=== PATIENT | female | born 1975 | race Two or more races ===

== ENCOUNTER 2024-11-27 17:31 | Inpatient (IN) | payer SELFPAY ==
[~2024-11-27] VITALS: Ht 154.9 cm; Wt 107.2 kg
--- NOTE | 2024-11-27 17:41 | ED.PDOC ---
SOB-HPI HPI Comments 48 year old female presents to the ED with chief complaint of SOB. Patient reports that she has been experiencing SOB with associated cough and 5/10 chest pain for the past few days. Patient relays that she has history of asthma and has been using her inhaler and prednisone with no relief noted. Patient denies any N/V, fever, chills, headache, dizziness, or LOC. Chief Complaint: Shortness of Breath Time Seen by MD: 17:38 Reviewed notes: Nurses Notes, Medications, Allergies Information Source: Patient Mode of Arrival: Ambulatory Severity: Moderate Timing: Days Duration: Since onset Context: At Rest PE Risk Factors: None History of: Asthma Prehospital treatment: None Modifying Factors: Nothing Associated Signs and Symptoms: Cough If cough with SOB: Non-Productive Past Medical History PAST MEDICAL HISTORY: Asthma Surgical History: Denies all surgeries OCULAR CARE AIDE History: Denies all OCULAR CARE AIDE Hx Family History Family History: Reviewed,noncontributory to illness Social History Smoker: Non-Smoker Alcohol: Denies ETOH Use Drugs: Denies Drug Use Lives In: Home Constitutional: denies: chills, diaphoresis, fatigue, fever, malaise, sweats, weakness, others EENTM: denies: blurred vision, double vision, ear bleeding, ear discharge, ear drainage, ear pain, ear ringing, eye pain, eye redness, hearing loss, mouth pain, mouth swelling, nasal discharge, nose bleeding, nose congestion, nose pain, photophobia, tearing, throat pain, throat swelling, voice changes, others Respiratory: reports: cough, shortness of breath; denies: hemoptysis, orthopnea, SOB at rest, SOB with excertion, stridor, wheezing, others Cardiovascular: reports: chest pain; denies: dizzy spells, diaphoresis, Dyspnea on exertion, edema, irregular heart beat, left arm pain, lightheadedness, palpitations, PND, syncope, others Gastrointestinal: denies: abdomen distended, abdominal pain, blood streaked bowels, constipated, diarrhea, dysphagia, difficulty swallowing, hematemesis, melena, nausea, poor appetite, poor fluid intake, rectal bleeding, rectal pain, vomiting, others Genitourinary: denies: abnormal vagina bleeding, burning, dyspareunia, dysuria, flank pain, frequency, hematuria, incontinence, pain, , vagina discharge, urgency, others Neurological: denies: dizziness, fainting, headache, left sided numbness, left sided weakness, numbness, paresthesia, pre-existing deficit, right sided numbness, right sided weakness, seizure, speech problems, tingling, tremors, weakness, others Musculoskeletal: denies: back pain, gout, joint pain, joint swelling, muscle pain, muscle stiffness, neck pain, others Integumetry: denies: bruises, change in color, change in hair/nails, dryness, laceration, lesions, lumps, rash, wounds, others Allergic/Immunocompromised: denies: Difficulty Healing, Frequent Infections, Hives, Itching, others Hematologic/Lymphatic: denies: anemia, blood clots, easy bleeding, easy bruising, swollen glands, others Endocrine: denies: excessive hunger, excessive sweating, excessive thirst, excessive urination, flushing, intolerance to cold, intolerance to heat, unexplained weight gain, unexplained weight loss, others Psychiatric: denies: anxiety, bipolar disorder, depression, hopeless, panic disorder, schizophrenia, sleepless, suicidal, others All Other Systems: Reviewed and Negative Physical Exam General Appearance: No Apparent Distress, Normal HEENT: Normal ENT Inspection, Pharynx Normal, TMs Normal Neck: Full Range of Motion, Non-Tender, Normal, Normal Inspection Respiratory: Chest Non-Tender, Lungs Clear, No Accessory Muscle Use, No Respiratory Distress, Other (Tachypneic and Hypoxic) Cardiovascular: No Edema, No JVD, No Murmur, No Gallop, Normal Peripheral Pulses, Tachycardia Breast Exam: Deferred Gastrointestinal: No Organomegaly, Non Tender, No Pulsatile Mass, Normal Bowel Sounds, Soft Genitalia: Deferred Pelvic: Deferred Rectal: Deferred Extremities: No calf tenderness, Normal capillary refill, Normal inspection, Normal range of motion, Non-tender, No pedal edema Musculoskeletal : Apperance: Normal Neurologic: Alert, 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 Was a procedure done?: No Differential Dx Differential Diagnosis: Asthma, Bronchitis, Pneumonia, Respiratory Distress X-Ray, Labs, Meds, VS Vital Signs Date Time Temp Pulse Resp B/P (MAP) Pulse Ox O2 Delivery O2 Flow Rate FiO2 5/21/25 18:25 89 22 95 Nasal Cannula 2.0 11/27/24 18:25 97.0 89 22 148/76 (100) 95 97.0 11/27/24 18:08 26 97 Nasal Cannula* 4 36 11/27/24 17:41 96.3 110 26 166/102 (123) 94 96.3 11/27/24 17:39 26 94 Nasal Cannula* 4 36 Lab Test 11/27/24 19:42 11/27/24 18:27 Range/Units Troponin I High Sensitivity 3 L 3 L </=34 ng/L White Blood Count 21.3 H 4.4-10.8 10^3/uL Red Blood Count 5.10 4.0-5.20 10^6/uL Hemoglobin 15.0 12.2-16.2 g/dL Hematocrit 45.1 36.0-46.0 % Mean Corpuscular Volume 88.5 80.0-100.0 fL Mean Corpuscular Hemoglobin 29.5 28.0-32.0 pg Mean Corpuscular Hemoglobin Concent 33.3 32.0-36.0 g/dL Red Cell Distribution Width 13.5 11.8-14.3 % Platelet Count 370 140-450 10^3/uL Mean Platelet Volume 8.0 6.9-10.8 fL Neutrophils (%) (Auto) 37.0-80.0 % Lymphocytes (%) (Auto) 10.0-50.0 % Monocytes (%) (Auto) 0.0-12.0 % Eosinophils (%) (Auto) 0.0-7.0 % Basophils (%) (Auto) 0.0-2.0 % Neutrophils # (Auto) 1.6-8.6 10 ^3/uL Lymphocytes # (Auto) 0.4-5.4 10 ^3/uL Monocytes # (Auto) 0-1.3 10 ^3/uL Differential Total Cells Counted 100.0 100 Neutrophils % (Manual) 49 37.0-80.0 Band Neutrophils % (Manual) 0 Lymphocytes % (Manual) 16 10.0-50.0 Monocytes % (Manual) 7 0-12 Eosinophils % (Manual) 28 H 0-7 Basophils % (Manual) 0 0.0-2.0 Metamyelocytes % (manual) 0 Myelocytes % (Manual) 0 Promyelocytes % (Manual) 0 Blast Cells % (Manual) 0 Reactive Lymphocytes 0 Platelet Estimate Adequate Sodium Level 137 136-145 mmol/L Potassium Level 4.4 3.5-5.1 mmol/L Chloride Level 103 98-107 mmol/L Carbon Dioxide Level 26 20-31 mmol/L Anion Gap 8 5-15 Blood Urea Nitrogen 11 9-23 mg/dL Creatinine 0.88 0.550-1.02 mg/dL Glomerular Filtration Rate Calc 82 >90 mL/min BUN/Creatinine Ratio 12.5 10.0-20.0 Serum Glucose 112 H 74-106 mg/dL Calcium Level 8.9 8.7-10.4 mg/dL B-Type Natriuretic Peptide 8.42 0-100 pg/mL Current Medications Medications (Trade) Dose Ordered Sig/Akia Route Start Time Stop Time Status Last Admin Albuterol (Ventolin Medneb) 5 mg ONCE ONCE NEB 11/27/24 17:45 11/27/24 17:46 DC 11/27/24 18:08 Azithromycin (Zithromax Tablet) 500 mg ONCE ONCE PO 11/27/24 17:45 11/27/24 17:46 DC 11/27/24 18:50 Ipratropium [place] (Atrovent Medneb) 0.5 mg ONCE ONCE NEB 11/27/24 17:45 11/27/24 17:46 DC 11/27/24 18:08 Methylprednisolone Sodium Succinate (Solu Medrol) 62.5 mg ONCE ONCE IV 11/27/24 17:45 11/27/24 17:46 DC 11/27/24 17:45 Time of 1ST Reevaluation: 18:38 Reevaluation 1ST: Improved Patient Education/Counseling: Diagnosis, Treatment Family Education/Counseling: No Family Present Additional Information Reviewed patient's previous visit(s): None The following tests were ordered, and results were reviewed by me: CXR, CBC, BMP, Troponin, BNP Additional information was gathered from interviewing the following independent historian: None I reviewed and agreed with the following test results read by other provider: CXR I discussed treatments and results with medical personnel and: PATIENT Comprehensive systems review obtained and negative except for what is stated in the HPI. Departure 1 Departure Time of Disposition: 20:53 (Patient with acute on chronic respiratory failure likely secondary to severe status asthmaticus. Patient's white count is elevated but it it is reactionary secondary to steroid usage. Patient without any other signs of infection. We will treat patient with high-dose steroids azithromycin nebs and admit patient) Impression: Primary Impression: Acute and chronic respiratory failure Additional Impressions: Shortness of breath Asthma exacerbation Qualified Codes: J45.41 - Moderate persistent asthma with (acute) exacerbation Disposition: ADMITTED INPATIENT Admit to: Tele Condition: Guarded Critical Care Note Critical Care Time?: Yes Critical care comment: Acute respiratory failure Authorized and Performed by: Kika Zayas MD Total critical care time: Approximately 38 minutes Due to a high probability of clinically significant, life threatening deterioration, the patient required my highest level of preparedness to intervene emergently and I personally spent this critical care time directly and personally managing the patient. This critical care time included obtaining a history; examining the patient; pulse oximetry; ordering and review of studies; arranging urgent treatment with development of a management plan; evaluation of patient's response to treatment; frequent reassessment; and, discussions with other providers. This critical care time was performed to assess and manage the high probability of imminent, life-threatening deterioration that could result in multi-organ failure. It was exclusive of separately billable procedures and treating other patients and teaching time. Please see my other sections and the rest of the note for further information on patient assessment and treatment. Stability Stability form required: No Heart Score Heart Score: Heart Score Response (Comments) Value History N/A 0 EKG N/A 0 Age N/A 0 Risk Factors N/A 0 Troponin N/A 0 Total 0 I personally scribed for KIKA ZAYAS MD ([email or web address]) on 11/27/24 at 17:41. Electronically submitted by Storm Schaefer ([email or web address]). I personally scribed for KIKA ZAYAS MD ([email or web address]) on 11/27/24 at 17:42. Electronically submitted by Storm Schaefer ([email or web address]). KIKA ZAYAS MD November 27, 2024 17:41
[2024-11-27] MEDS: methylPREDNISolone SOD SUCC 125 MG/2 ML VL IV ONE (17:45)
[2024-11-27] MEDS: ALBUTEROL SULF 2.5 MG/0.5ML(0.5%) NEB SOLN NEB ONE (18:08)
[2024-11-27] MEDS: IPRATROPIUM BROM 0.5 MG/2.5ML INH SOL NEB ONE (18:08)
[2024-11-27 18:48] LABS: Hematocrit 45.1 % (36.0-46.0); Mean Corpuscular Hemoglobin 29.5 pg (28.0-32.0); Mean Corpuscular Hgb Conc. 33.3 g/dL (32.0-36.0); Mean Corpuscular Volume 88.5 fL (80.0-100.0); Platelet Count (auto) 370 10^3/uL (140-450); Red Cell Distribution Width 13.5 % (11.8-14.3); White Blood Cell 21.3 10^3/uL (4.4-10.8)
[2024-11-27] MEDS: AZITHROMYCIN 250 MG TAB PO ONE (18:50)
[2024-11-27 18:57] LABS: Band Neutrophils % (manual) 0; Basophils % (manual) 0 (0.0-2.0); Blast Cells 0; Chloride 103 mmol/L (98-107); Metamyelocytes % 0; Myelocytes % 0; Promyelocytes % 0; Reactive Lymphocytes 0; Sodium 137 mmol/L (136-145)
[2024-11-27 18:58] LABS: Anion Gap 8 (5-15); Carbon Dioxide 26 mmol/L (20-31)
[2024-11-27 18:59] LABS: Calcium 8.9 mg/dL (8.7-10.4)
[2024-11-27 19:08] LABS: Glucose 112 mg/dL (74-106); Potassium 4.4 mmol/L (3.5-5.1)
[2024-11-27 19:22] LABS: BUN/Creatinine Ratio 12.5 (10.0-20.0); Blood Urea Nitrogen 11 mg/dL (9-23)
--- NOTE | 2024-11-27 19:31 | DVH ---
INDICATION: sob TECHNIQUE: Frontal view of the chest. COMPARISON: None FINDINGS: Findings:. The heart and mediastinal contours are grossly unremarkable. There is no evidence of pleu ral disease. The lungs are clear. The bony structures of the chest are intact without fracture. IMPRESSION: 1. No evidence of acute disease.
[2024-11-27 20:39] LABS: Eosinophils % (manual) 28 (0-7); Lymphocytes % (manual) 16 (10.0-50.0); Monocytes % (manual) 7 (0-12); Platelet Estimate Adequate
--- NOTE | 2024-11-27 21:04 | DVHHP2 ---
Admitting Diagnosis: Shortness of breaths History of Present Illness 48 year old female presents to the ED with chief complaint of SOB. Patient reports that she has been experiencing SOB with associated cough and 5/10 chest pain for the past few days. Patient relays that she has history of asthma and has been using her inhaler and prednisone with no relief noted. Patient denies any N/V, fever, chills, headache, dizziness, or LOC. PAST MEDICAL HISTORY: Asthma Surgical History: Denies all surgeries ERGONOMIC SPECIALIST History: Denies all ERGONOMIC SPECIALIST Hx Family History Family History: Reviewed,noncontributory to illness Social History Smoker: Non-Smoker Alcohol: Denies ETOH Use Drugs: Denies Drug Use Lives In: Home Vital Signs Vital Signs Date Time Temp Pulse Resp B/P (MAP) Pulse Ox O2 Delivery O2 Flow Rate FiO2 11/27/24 18:25 89 22 95 Nasal Cannula 2.0 11/27/24 18: 97.0 148/76 (100) 97.0 11/27/24 18:08 36 Physical Exam Generally-48 years old woman, morbidly obese, sitting on chair. Moderate distress HEENT-atraumatic, normocephalic Heart-regular rate and rhythm Lungs diffuse wheezing throughout the lung Abdomen soft nontender nondistended Musculoskeletal-no edema cyanosis Neuro-AO x3, no focal deficits Results Labs Test 11/27/24 19:42 11/27/24 18:27 Range/Units Troponin I High Sensitivity 3 L </=34 ng/L White Blood Count 21.3 H 4.4-10.8 10^3/uL Red Blood Count 5.10 4.0-5.20 10^6/uL Hemoglobin 15.0 12.2-16.2 g/dL Hematocrit 45.1 36.0-46.0 % Mean Corpuscular Volume 88.5 80.0-100.0 fL Mean Corpuscular Hemoglobin 29.5 28.0-32.0 pg Mean Corpuscular Hemoglobin Concent 33.3 32.0-36.0 g/dL Red Cell Distribution Width 13.5 11.8-14.3 % Platelet Count 370 140-450 10^3/uL Mean Platelet Volume 8.0 6.9-10.8 fL Neutrophils (%) (Auto) 37.0-80.0 % Lymphocytes (%) (Auto) 10.0-50.0 % Monocytes (%) (Auto) 0.0-12.0 % Eosinophils (%) (Auto) 0.0-7.0 % Basophils (%) (Auto) 0.0-2.0 % Neutrophils # (Auto) 1.6-8.6 10 ^3/uL Lymphocytes # (Auto) 0.4-5.4 10 ^3/uL Monocytes # (Auto) 0-1.3 10 ^3/uL Differential Total Cells Counted 100.0 100 Neutrophils % (Manual) 49 37.0-80.0 Band Neutrophils % (Manual) 0 Lymphocytes % (Manual) 16 10.0-50.0 Monocytes % (Manual) 7 0-12 Eosinophils % (Manual) 28 H 0-7 Basophils % (Manual) 0 0.0-2.0 Metamyelocytes % (manual) 0 Myelocytes % (Manual) 0 Promyelocytes % (Manual) 0 Blast Cells % (Manual) 0 Reactive Lymphocytes 0 Platelet Estimate Adequate Sodium Level 137 136-145 mmol/L Potassium Level 4.4 3.5-5.1 mmol/L Chloride Level 103 98-107 mmol/L Carbon Dioxide Level 26 20-31 mmol/L Anion Gap 8 5-15 Blood Urea Nitrogen 11 9-23 mg/dL Creatinine 0.88 0.550-1.02 mg/dL Glomerular Filtration Rate Calc 82 >90 mL/min BUN/Creatinine Ratio 12.5 10.0-20.0 Serum Glucose 112 H 74-106 mg/dL Calcium Level 8.9 8.7-10.4 mg/dL B-Type Natriuretic Peptide 8.42 0-100 pg/mL Primary Diagnosis Acute respiratory failure requiring oxygen Acute asthma exacerbation Plan Check ABG Diffuse wheezing throughout the lung Solu-Medrol loaded in ED. Solu-Medrol 60 mg q.6 hours Albuterol and ipratropium q.6 hours standing . Q.4 hours. As needed Ceftriaxone, azithromycin for possible superimposed pneumonia Check sputum culture Check procalcitonin and CRP Oxygen saturation goal greater than 92% Full code Regular diet Lovenox for DVT prophylaxis PPI for GI prophylaxis while on steroids Plan discussed with: Patient Problems List: (1) Shortness of breath Status: Acute (2) Acute and chronic respiratory failure Status: Acute (3) Asthma exacerbation Status: Acute Date of Service: November 27, 2024 Billing Provider: [place] KUMAR MD Common Visit Codes: [id number] INP/OBS CARE (HIGH) [place] KUMAR MD November 27, 2024 21:04
[2024-11-27] MEDS ORDERED: ACETAMINOPHEN 325 MG TAB PO PRN (21:15)
[2024-11-27] MEDS ORDERED: ALBUTEROL SULF 2.5 MG/0.5ML(0.5%) NEB SOLN NEB SCH (21:15)
[2024-11-27] MEDS ORDERED: IPRATROPIUM BROM 0.5 MG/2.5ML INH SOL NEB SCH (21:15)
[2024-11-27] MEDS ORDERED: ONDANSETRON HCL 4 MG/2 ML VIAL IV PRN (21:15)
[2024-11-27] MEDS ORDERED: DOCUSATE SOD 100 MG CAP PO PRN (21:15)
[2024-11-27 21:51] LABS: Base Excess -0.2 mmol/L (-2.0-3.0)
[2024-11-27 23:13] VITALS: BP 148/76; PULSE 89; RESP 22; TEMP 97; O2SAT 95
[2024-11-27] MEDS: SODIUM CHLOR 0.9% PF (SALINE LOCK) 10ML VIAL/SYR IV SCH (23:45)
[2024-11-27] MEDS: methylPREDNISolone SOD SUCC 125 MG/2 ML VL IV SCH (23:49)
[2024-11-27] MEDS: cefTRIAXone 1GM/50ML D5W 50 ML IV SCH (23:49)
[2024-11-27 23:59] VITALS: PULSE 105; RESP 20; O2SAT 95
[2024-11-28] VITALS (20 sets, daily range): BP systolic 100–138; BP diastolic 63–90; PULSE 90–122; RESP 16–26; TEMP 97–98.5; O2SAT 92–99
[2024-11-28] MEDS: AZITHROMYCIN 500MG/ 250ML 250 ML IV SCH (00:12)
[2024-11-28] MEDS: HYDROcodone-ACET 5/325MG TAB PO PRN (00:19)
[2024-11-28] MEDS: ALBUTEROL SULF 2.5 MG/0.5ML(0.5%) NEB SOLN NEB SCH ×2 (00:57→06:06)
[2024-11-28] MEDS: IPRATROPIUM BROM 0.5 MG/2.5ML INH SOL NEB SCH ×2 (00:57→06:06)
[2024-11-28] MEDS: ENOXAPARIN SOD 40 MG/0.4 ML SYRINGE SC SCH (09:40)
[2024-11-28] MEDS: MAGNESIUM SULFATE 1GM/100ML 100 ML IV SCH (13:18)
[2024-11-28] MEDS: ALBUTEROL SULF 2.5 MG/0.5ML(0.5%) NEB SOLN NEB PRN (16:10)
[2024-11-28] MEDS: IPRATROPIUM BROM 0.5 MG/2.5ML INH SOL NEB PRN (16:10)
--- NOTE | 2024-11-28 17:38 | DVHPN2 ---
Subjective SOB and wheezing Still wheezing On 5 liter O2 She had treatment as an outpatient and received steroids but she did not get better Changes from previous H/P or p: Changes Objective Vitals Vital Signs Date Time Temp Pulse Resp B/P (MAP) Pulse Ox O2 Delivery O2 Flow Rate FiO2 11/28/24 17:00 98.0 115 20 101/64 (76) 94 98.0 11/28/24 16:10 Nasal Cannula* 4 36 Intake/Output Intake and Output 11/28/24 07:00 Intake Total 750 ml Balance 750 ml Intake Oral 500 ml IV Total 250 ml # Voids 1 General Appearance: Alert, Oriented X3, moderate distress Lungs: Other (Severe diffuse wheezing) Cardiovascular: Regular rate, Normal S1, Normal S2, No murmurs Abdomen: Normal bowel sounds, Soft, No tenderness Extremities: No edema Medications Current Medications Medications Dose Ordered Sig/Kaia Route Start Time Stop Time Status Last Admin Dose Admin Methylprednisolone Sodium Succinate 62.5 mg Q6H IV 11/27/24 21:15 11/28/24 14:40 62.5 MG Ceftriaxone Sodium 50 ml @ 100 mls/hr DAILY IV 11/27/24 21:15 11/28/24 09:39 100 MLS/HR Azithromycin 250 ml @ 125 mls/hr DAILY IV 11/27/24 22:15 11/28/24 10:46 125 MLS/HR Sodium Chloride 10 ml Q8HR IV 11/27/24 22:00 11/28/24 13:18 10 ML Docusate Sodium 100 mg BIDPRN PRN PO 11/27/24 21:15 Acetaminophen 650 mg Q6HP PRN PO 11/27/24 21:15 Acetaminophen/ Hydrocodone Bitart 1 tab Q4HP PRN PO 11/27/24 21:15 11/28/24 10:51 1 TAB Ondansetron HCl 4 mg Q4HP PRN IV 11/27/24 21:15 Enoxaparin Sodium 40 mg DAILY SC 11/28/24 10:00 11/28/24 09:40 40 MG Albuterol 2.5 mg Q4HR NEB 11/28/24 06:00 11/28/24 14:16 2.5 MG Ipratropium [place] 0.5 mg Q4HR NEB 11/28/24 06:00 11/28/24 14:16 0.5 MG Albuterol 2.5 mg Q2HPRN PRN NEB 11/28/24 12:30 11/28/24 16:10 2.5 MG Ipratropium [place] 0.5 mg Q2HPRN PRN NEB 11/28/24 12:30 11/28/24 16:10 0.5 MG Laboratory Results Laboratory Tests 11/27/24 18:27 Chemistry Test 11/27/24 18:27 Calcium Level 8.9 mg/dL (8.7-10.4) Cardiac Markers Test 11/27/24 18:27 B-Type Natriuretic Peptide 8.42 pg/mL (0-100) Blood Gas Results Test 11/27/24 21:42 Arterial Blood pH 7.436 (7.350-7.450) FiO2 % 36.0 Assessment/Plan Assessment/Plan Acute hypoxic respiratory failure Asthma exacerbation Leukocytosis due to steroids Plan IV antibiotics Rocephin and Zithromax IV steroids Oxygen Med neb treatments as needed Pulmonary consultation Full code Advance directives discussed for 20 minutes Monitor closely Telemetry Give magnesium 2 g IV Plan discussed with: Patient My Orders Orders - JOSIANE TRACY MD Procedure Category Date Status Time Complete Blood Count LAB 11/29/24 Verified 04:00 Comprehensive LAB 11/29/24 Verified Metabolic Panel 04:00 Magnesium LAB 11/29/24 Verified 04:00 *Consult CONS 11/28/24 Transmitted / 12:19 Albuterol Medneb PHA 11/28/24 In Process (Ventolin Medneb) 12:30 Ipratropium Medneb PHA 11/28/24 In Process (Atrovent Medneb) 12:30 Date of Service: November 28, 2024 Billing Provider: JOSIANE TRACY MD Common Visit Codes: [id number] INP/OBS CARE(HIGH) Secondary Visit Codes: [id number] CARE PLAN 30 MINUTES JOSIANE TRACY MD November 28, 2024 17:38
--- NOTE | 2024-11-28 21:29 | DVHINCON2 ---
Date of service: November 28, [address] Foster Reason for Consultation Acute respiratory failure History of Present Illness History Source: Patient Exam Limitations: No limitations HPI Patient is a 48-year old lady with a history of asthma who presented with shortness of breath, cough and expiratory wheezes. Was seen in the emergency room where she was admitted for symptoms consistent with acute asthma attack and was started on IV steroids. Pulmonology was consulted to assist in management. Past Medical History Cardiac: No pertinent Hx Pulmonary: Asthma Central Nervous System: No pertinent Hx GI: No pertinent Hx Hemotology/Oncology: No pertinent Hx Hepatobiliary: No pertinent Hx Psychiatric: No pertinent Hx Musculoskeletal: No pertinent Hx Rheumotologic: No pertinent Hx Infectious Disease: No peritnent Hx ENT: No pertinent Hx Renal/: No pertinent Hx Endocrine: No pertinent Hx Dermatology: No pertinent Hx Past Surgical History: No pertinent Hx Family History: Cancer, DM Patient Family History: Diabetes mellitus G8 MOTHER FH: pancreatic cancer G8 MOTHER Gestational diabetes mellitus G8 SISTER G8 SISTER Smoker: No Hx (Negative) Alocohol: None Drugs: None Lives with: With family Domestic Violence: Neg Review of Systems Constitutional: No symptom reported Ears, Nose, & Throat: No symptom reported Eyes: No symptom reported Pulmonary/Respiratory: Dyspnea, Cough Cardiovascular: No symptom reported Gastrointestinal: No symptom reported Genitourinary: No symptom reported Musculoskeletal: No symptom reported Skin: No symptom reported Psychiatric: No symptom reported Endocrine: No symptom reported Hemotologic/Lymphatic: No symptom reported H&P Exam Vital Signs Vital Signs Date Time Temp Pulse Resp B/P (MAP) Pulse Ox O2 Delivery O2 Flow Rate FiO2 11/28/24 19:04 111 20 99 11/28/24 18:58 Nasal Cannula* 4 36 11/28/24 17:00 98.0 101/64 (76) 98.0 General Appeara: Well developed, Well nourished, Normal Appearance Head Exam: Normal inspection Neck Exam: Normal inspection, Non-tender, Normal alignment Eye Exam: bilateral eye Normal inspection, bilateral eye PERRL, bilateral eye EOMI Ear Exam: bilateral ear Auricle normal, bilateral ear Canal normal, bilateral ear TM normal Nasal Exam: Normal inspection Mouth: Normal Inspection Pulmonary/Respiratory: Decreased breath sounds Peripheral Pulses: 4+ Radial (R), 4+ Radial (L), 4+ Brachial (R), 4+ Brachial (L) Abdominal Exam: Normal bowel sounds Labs/Xrays Labs Test 11/27/24 21:42 11/27/24 19:42 11/27/24 18:27 Range/Units Blood Gas Specimen Type Arterial Blood Gas Sample Site Right brachial Blood Gas Patient Temperature 37.0 Arterial Blood Date Drawn [id number] Arterial Blood pH 7.436 7.350-7.450 Arterial Blood Partial Pressure CO2 35.7 32.0-45.0 mmHg Arterial Blood Partial Pressure O2 65.7 L 83.0-108.0 mmHg Arterial Blood HCO3 23.5 21.0-28.0 mmol/L Arterial Blood Oxygen Saturation 93.0 L 94.0-98.0 % Arterial Blood Base Excess -0.2 -2.0-3.0 mmol/L Arterial Blood Oxyhemoglobin 91.6 L 94.0-98.0 % Arterial Blood Carboxyhemoglobin 1.0 0.5-1.5 % Arterial Blood Methemoglobin 0.5 0.0-1.5 % Kye Test N/a Blood Gas Total Hemoglobin 15.50 12.0-16.0 g/dL Blood Gas Liter Flow 4.00 Blood Gas Modality Nasal cannula FiO2 % 36.0 Troponin I High Sensitivity 3 L </=34 ng/L White Blood Count 21.3 H 4.4-10.8 10^3/uL Red Blood Count 5.10 4.0-5.20 10^6/uL Hemoglobin 15.0 12.2-16.2 g/dL Hematocrit 45.1 36.0-46.0 % Mean Corpuscular Volume 88.5 80.0-100.0 fL Mean Corpuscular Hemoglobin 29.5 28.0-32.0 pg Mean Corpuscular Hemoglobin Concent 33.3 32.0-36.0 g/dL Red Cell Distribution Width 13.5 11.8-14.3 % Platelet Count 370 140-450 10^3/uL Mean Platelet Volume 8.0 6.9-10.8 fL Neutrophils (%) (Auto) 37.0-80.0 % Lymphocytes (%) (Auto) 10.0-50.0 % Monocytes (%) (Auto) 0.0-12.0 % Eosinophils (%) (Auto) 0.0-7.0 % Basophils (%) (Auto) 0.0-2.0 % Neutrophils # (Auto) 1.6-8.6 10 ^3/uL Lymphocytes # (Auto) 0.4-5.4 10 ^3/uL Monocytes # (Auto) 0-1.3 10 ^3/uL Differential Total Cells Counted 100.0 100 Neutrophils % (Manual) 49 37.0-80.0 Band Neutrophils % (Manual) 0 Lymphocytes % (Manual) 16 10.0-50.0 Monocytes % (Manual) 7 0-12 Eosinophils % (Manual) 28 H 0-7 Basophils % (Manual) 0 0.0-2.0 Metamyelocytes % (manual) 0 Myelocytes % (Manual) 0 Promyelocytes % (Manual) 0 Blast Cells % (Manual) 0 Reactive Lymphocytes 0 Platelet Estimate Adequate Sodium Level 137 136-145 mmol/L Potassium Level 4.4 3.5-5.1 mmol/L Chloride Level 103 98-107 mmol/L Carbon Dioxide Level 26 20-31 mmol/L Anion Gap 8 5-15 Blood Urea Nitrogen 11 9-23 mg/dL Creatinine 0.88 0.550-1.02 mg/dL Glomerular Filtration Rate Calc 82 >90 mL/min BUN/Creatinine Ratio 12.5 10.0-20.0 Serum Glucose 112 H 74-106 mg/dL Calcium Level 8.9 8.7-10.4 mg/dL C-Reactive Protein High Sensitivity 0.76 <1.0 mg/dL B-Type Natriuretic Peptide 8.42 0-100 pg/mL Assessment/Plan Plan Impression Acute hypoxemic respiratory failure Acute asthma attack Wheezing Dyspnea Patient seen and examined Events Low oxygen requirements On 4 liters nasal cannula Vital signs stable Labs and imaging reviewed Management Supplemental oxygen Titrate to maintain sats 90% or above Incentive spirometry Antibiotics Bronchodilators Steroids Monitor renal function Monitor electrolytes Supplement as needed Obtain CT of the chest without contrast to better characterize lung parenchyma DVT prophylaxis Plan discussed with: Patient NUBIA COTO MD November 28, 2024 21:29
[2024-11-29] VITALS (16 sets, daily range): BP systolic 106–131; BP diastolic 66–89; PULSE 88–118; RESP 17–21; TEMP 96–98.4; O2SAT 94–98
[2024-11-29 06:43] LABS: Albumin 4.2 g/dL (3.2-4.8); Alkaline Phosphatase 63 U/L (46-116); Anion Gap 7 (5-15); BUN/Creatinine Ratio 18.1 (10.0-20.0); Blood Urea Nitrogen 13 mg/dL (9-23); Carbon Dioxide 25 mmol/L (20-31); Chloride 105 mmol/L (98-107); Magnesium 2.5 mg/dL (1.6-2.6); Potassium 4.6 mmol/L (3.5-5.1); Sodium 137 mmol/L (136-145)
[2024-11-29 06:44] LABS: Bilirubin, Total 0.3 mg/dL (0.2-1.0)
[2024-11-29 06:57] LABS: Alanine Aminotransferase 41 U/L (7-40); Aspartate Aminotransferase 9 U/L (13-40); Calcium 8.6 mg/dL (8.7-10.4); Glucose 167 mg/dL (74-106)
[2024-11-29 07:06] LABS: Hematocrit 40.5 % (36.0-46.0); Hemoglobin 13.4 g/dL (12.2-16.2); Mean Corpuscular Hemoglobin 29.5 pg (28.0-32.0); Mean Corpuscular Volume 89.3 fL (80.0-100.0); Platelet Count (auto) 357 10^3/uL (140-450); Red Blood Cells 4.53 10^6/uL (4.0-5.20); Red Cell Distribution Width 13.8 % (11.8-14.3); White Blood Cell 26.3 10^3/uL (4.4-10.8)
[2024-11-29 07:48] LABS: Band Neutrophils % (manual) 0; Basophils % (manual) 0 (0.0-2.0); Blast Cells 0; Eosinophils % (manual) 0 (0-7); Metamyelocytes % 0; Myelocytes % 0; Promyelocytes % 0; Reactive Lymphocytes 0
--- NOTE | 2024-11-29 09:54 | DVH ---
Procedure: CT CHEST WITHOUT CONTRAST Reason for study/Clinical History: dyspnea Comparison Study: None TECHNIQUE: Multidetector CT of the chest was performed from the lung apices to the upper abdomen with out the use of intravenous contract. Axial, coronal and sagittal multiplanar reformats were performed . Radiation Dose Information: CT Dose: CTDI volume is 25.77 mGy. Dose-length product is 918.45 mGy*cm The dose indicators for CT are the volume Computed Tomography (CT) Dose Index (CTDIvol) and the Dose Length Product (DLP), and are measured in units of mGy and mGy-cm, respectively. These indicators are not patient dose, but values generated from the CT scanner acquisition factors. The report includes radiation exposure data for exposures received during this examination. FINDINGS: Lower neck: Unremarkable. Lungs: Right upper lobe ground-glass airspace opacity measures 3.0 cm. Heart/Vascular Structures: Normal heart size. No pericardial effusion. Lymph Nodes: No adenopathy Pleura: No pleural effusion or significant pneumothorax. Musculoskeletal: No acute osseous abnormality. Soft tissues: Normal. Upper abdomen: Cholelithiasis. IMPRESSION: Right upper lobe ground-glass airspace opacity measures 3.0 cm. This is likely infectious or inflamma tory. Recommend repeat CT after treatment to ensure complete resolution.
[2024-11-29 11:53] LABS: Lymphocytes % (manual) 7 (10.0-50.0); Monocytes % (manual) 4 (0-12); Platelet Estimate Adequate
--- NOTE | 2024-11-29 11:54 | DVHPN2 ---
Subjective Better Less shortness of breaths and less wheezing Complains of pain and swelling in the abdomen for the last few weeks Changes from previous H/P or p: Changes Objective Vitals Vital Signs Date Time Temp Pulse Resp B/P (MAP) Pulse Ox O2 Delivery O2 Flow Rate FiO2 11/29/24 09:47 96 Nasal Cannula* 3 32 11/29/24 09:47 110 20 11/29/24 09:00 98.4 106/66 (79) 98.4 Intake/Output Intake and Output 11/29/24 07:00 Intake Total 1800 ml Balance 1800 ml Intake Oral 1300 ml IV Total 500 ml # Voids 3 General Appearance: Alert, Oriented X3, moderate distress Lungs: Other (Severe diffuse wheezing) Cardiovascular: Regular rate, Normal S1, Normal S2, No murmurs Abdomen: Normal bowel sounds, Soft, No tenderness Extremities: No edema Medications Current Medications Medications Dose Ordered Sig/Kaia Route Start Time Stop Time Status Last Admin Dose Admin Methylprednisolone Sodium Succinate 62.5 mg Q6H IV 11/27/24 21:15 11/29/24 09:43 62.5 MG Ceftriaxone Sodium 50 ml @ 100 mls/hr DAILY IV 11/27/24 21:15 11/29/24 09:43 100 MLS/HR Azithromycin 250 ml @ 125 mls/hr DAILY IV 11/27/24 22:15 11/29/24 11:21 125 MLS/HR Sodium Chloride 10 ml Q8HR IV 11/27/24 22:00 11/29/24 05:37 10 ML Docusate Sodium 100 mg BIDPRN PRN PO 11/27/24 21:15 Acetaminophen 650 mg Q6HP PRN PO 11/27/24 21:15 Acetaminophen/ Hydrocodone Bitart 1 tab Q4HP PRN PO 11/27/24 21:15 11/29/24 03:14 1 TAB Ondansetron HCl 4 mg Q4HP PRN IV 11/27/24 21:15 Enoxaparin Sodium 40 mg DAILY SC 11/28/24 10:00 11/29/24 09:43 40 MG Albuterol 2.5 mg Q4HR NEB 11/28/24 06:00 11/29/24 09:41 2.5 MG Ipratropium [place] 0.5 mg Q4HR NEB 11/28/24 06:00 11/29/24 09:41 0.5 MG Albuterol 2.5 mg Q2HPRN PRN NEB 11/28/24 12:30 11/28/24 16:10 2.5 MG Ipratropium [place] 0.5 mg Q2HPRN PRN NEB 11/28/24 12:30 11/28/24 16:10 0.5 MG Laboratory Results Laboratory Tests 11/29/24 06:02 Chemistry Test 11/29/24 06:02 Albumin 4.2 g/dL (3.2-4.8) Calcium Level 8.6 mg/dL (8.7-10.4) L Magnesium Level 2.5 mg/dL (1.6-2.6) Total Protein 7.0 g/dL (5.7-8.2) LFT Test 11/29/24 06:02 Alanine Aminotransferase (ALT) 41 U/L (7-40) H Alkaline Phosphatase 63 U/L (46-116) Aspartate Amino Transferase (AST) 9 U/L (13-40) L Total Bilirubin 0.3 mg/dL (0.2-1.0) Assessment/Plan Assessment/Plan Acute hypoxic respiratory failure Asthma exacerbation Leukocytosis due to steroids Plan IV antibiotics Rocephin and Zithromax IV steroids Oxygen Med neb treatments as needed Pulmonary consultation Full code Advance directives discussed for 20 minutes Monitor closely Telemetry Give magnesium 2 g IV 11/29/2024: Continue oxygen Med neb treatments IV antibiotics IV steroids Abdominal pain and swelling: Get abdominal ultrasound Monitor the patient closely Plan discussed with: Patient My Orders Orders - JOSIANE TRACY MD Procedure Category Date Status Time *Consult CONS 11/28/24 Transmitted / 12:19 Albuterol Medneb PHA 11/28/24 In Process (Ventolin Medneb) 12:30 Ipratropium Medneb PHA 11/28/24 In Process (Atrovent Medneb) 12:30 Date of Service: November 29, 2024 Billing Provider: JOSIANE TRACY MD Common Visit Codes: [id number] INP/OBS CARE(HIGH) JOSIANE TRACY MD November 29, 2024 11:54
--- NOTE | 2024-11-29 13:18 | DVH ---
Exam: US ABDOMEN COMPLETE SONOGRAM Date: 11/29/2024 12:08 PM Clinical History: pain and swelling Comparison: None Technique: Targeted sonographic evaluation of the soft tissues of the umbilical region was obtained utilizing gr ayscale and color Doppler imaging. Findings/Impression: There is no evidence for drainable collection. There is no evidence for solid or cystic mass in the site. No vascular abnormalities identified at this site.
[2024-11-30] VITALS (23 sets, daily range): BP systolic 123–145; BP diastolic 60–92; PULSE 74–113; RESP 16–22; TEMP 97.5–98.8; O2SAT 93–100
[2024-11-30 07:22] LABS: Basophils # (auto) 0 10 ^3/uL (0-0.2); Basophils % (auto) 0.1 % (0.0-2.0); Eosinophils # (auto) 0 10 ^3/uL (0-0.8); Hematocrit 39.4 % (36.0-46.0); Hemoglobin 13.1 g/dL (12.2-16.2); Lymphocytes # (auto) 1.2 10 ^3/uL (0.4-5.4); Lymphocytes % (auto) 5.1 % (10.0-50.0); Mean Corpuscular Hemoglobin 29.8 pg (28.0-32.0); Mean Corpuscular Hgb Conc. 33.2 g/dL (32.0-36.0); Mean Corpuscular Volume 89.7 fL (80.0-100.0); Monocytes # (auto) 0.8 10 ^3/uL (0-1.3); Monocytes % (auto) 3.5 % (0.0-12.0); Neutrophils % (auto) 91.3 % (37.0-80.0); Nucleated Red Blood Cells % 0.1 %; Platelet Count (auto) 352 10^3/uL (140-450); Red Cell Distribution Width 14.1 % (11.8-14.3); White Blood Cell 24.1 10^3/uL (4.4-10.8)
[2024-11-30 07:31] LABS: Anion Gap 8 (5-15); Carbon Dioxide 27 mmol/L (20-31); Chloride 104 mmol/L (98-107); Potassium 4.8 mmol/L (3.5-5.1); Sodium 139 mmol/L (136-145)
[2024-11-30 07:32] LABS: Calcium 9.4 mg/dL (8.7-10.4)
[2024-11-30 07:37] LABS: BUN/Creatinine Ratio 26.5 (10.0-20.0); Blood Urea Nitrogen 18 mg/dL (9-23)
[2024-11-30 07:38] LABS: Glucose 149 mg/dL (74-106)
--- NOTE | 2024-11-30 15:55 | DVHPN2 ---
Subjective Better Still wheezing Changes from previous H/P or p: Changes Objective Vitals Vital Signs Date Time Temp Pulse Resp B/P (MAP) Pulse Ox O2 Delivery O2 Flow Rate FiO2 11/30/24 14:18 93 16 98 11/30/24 12:59 98.6 126/60 (82) 98.6 11/30/24 10:05 Nasal Cannula* 3 32 Intake/Output Intake and Output 11/30/24 07:00 Intake Total 3150 ml Balance 3150 ml Intake Oral 3100 ml IV Total 50 ml # Voids 4 General Appearance: Alert, Oriented X3, moderate distress Lungs: Other (Severe diffuse wheezing) Cardiovascular: Regular rate, Normal S1, Normal S2, No murmurs Abdomen: Normal bowel sounds, Soft, No tenderness Extremities: No edema Medications Current Medications Medications Dose Ordered Sig/Kaia Route Start Time Stop Time Status Last Admin Dose Admin Methylprednisolone Sodium Succinate 62.5 mg Q6H IV 11/27/24 21:15 11/30/24 09:09 62.5 MG Ceftriaxone Sodium 50 ml @ 100 mls/hr DAILY IV 11/27/24 21:15 11/30/24 09:09 100 MLS/HR Azithromycin 250 ml @ 125 mls/hr DAILY IV 11/27/24 22:15 11/30/24 09:57 125 MLS/HR Sodium Chloride 10 ml Q8HR IV 11/27/24 22:00 11/30/24 13:15 10 ML Docusate Sodium 100 mg BIDPRN PRN PO 11/27/24 21:15 Acetaminophen 650 mg Q6HP PRN PO 11/27/24 21:15 Acetaminophen/ Hydrocodone Bitart 1 tab Q4HP PRN PO 11/27/24 21:15 11/29/24 21:00 1 TAB Ondansetron HCl 4 mg Q4HP PRN IV 11/27/24 21:15 Enoxaparin Sodium 40 mg DAILY SC 11/28/24 10:00 11/30/24 09:09 40 MG Albuterol 2.5 mg Q4HR NEB 11/28/24 06:00 11/30/24 14:07 2.5 MG Ipratropium [place] 0.5 mg Q4HR NEB 11/28/24 06:00 11/30/24 14:08 0.5 MG Albuterol 2.5 mg Q2HPRN PRN NEB 11/28/24 12:30 11/28/24 16:10 2.5 MG Ipratropium [place] 0.5 mg Q2HPRN PRN NEB 11/28/24 12:30 11/28/24 16:10 0.5 MG Laboratory Results Laboratory Tests 11/30/24 06:12 Chemistry Test 11/30/24 06:12 Calcium Level 9.4 mg/dL (8.7-10.4) Assessment/Plan Assessment/Plan Acute hypoxic respiratory failure Asthma exacerbation Leukocytosis due to steroids Pneumonia due to G- vs G+ bacteria Plan IV antibiotics Rocephin and Zithromax IV steroids Oxygen Med neb treatments as needed Pulmonary consultation Full code Advance directives discussed for 20 minutes Monitor closely Telemetry Give magnesium 2 g IV 11/29/2024: Continue oxygen Med neb treatments IV antibiotics IV steroids Abdominal pain and swelling: Get abdominal ultrasound Monitor the patient closely 11/30/24: US abd: Neg CT Chest: Pneumonia Continue IV antibiotics IV steroids O2, taper down as tolerated Med Nebs prn Plan discussed with: Patient Date of Service: November 30, 2024 Billing Provider: JOSIANE TRACY MD Common Visit Codes: [id number] INP/OBS CARE(HIGH) JOSIANE TRACY MD November 30, 2024 15:55
[2024-12-01] VITALS (21 sets, daily range): BP systolic 122–147; BP diastolic 74–87; PULSE 83–114; RESP 16–24; TEMP 97.7–98.2; O2SAT 93–98
--- NOTE | 2024-12-01 12:23 | DVHPN2 ---
Subjective Better Still wheezing although better Changes from previous H/P or p: Changes Objective Vitals Vital Signs Date Time Temp Pulse Resp B/P (MAP) Pulse Ox O2 Delivery O2 Flow Rate FiO2 12/01/24 10:19 99 16 96 12/01/24 10:05 Nasal Cannula 2.0 12/01/24 10:05 28 12/01/24 08:59 97.7 122/87 (99) 97.7 Intake/Output Intake and Output 12/01/24 07:00 Intake Total 1590 ml Balance 1590 ml Intake Oral 1290 ml IV Total 300 ml # Voids 4 # Bowel Movements 1 General Appearance: Alert, Oriented X3, moderate distress Lungs: Other (Severe diffuse wheezing) Cardiovascular: Regular rate, Normal S1, Normal S2, No murmurs Abdomen: Normal bowel sounds, Soft, No tenderness Extremities: No edema Medications Current Medications Medications Dose Ordered Sig/Kaia Route Start Time Stop Time Status Last Admin Dose Admin Methylprednisolone Sodium Succinate 62.5 mg Q6H IV 11/27/24 21:15 12/01/24 09:11 62.5 MG Ceftriaxone Sodium 50 ml @ 100 mls/hr DAILY IV 11/27/24 21:15 12/01/24 09:12 100 MLS/HR Azithromycin 250 ml @ 125 mls/hr DAILY IV 11/27/24 22:15 12/01/24 10:28 125 MLS/HR Sodium Chloride 10 ml Q8HR IV 11/27/24 22:00 12/01/24 06:01 10 ML Docusate Sodium 100 mg BIDPRN PRN PO 11/27/24 21:15 Acetaminophen 650 mg Q6HP PRN PO 11/27/24 21:15 Acetaminophen/ Hydrocodone Bitart 1 tab Q4HP PRN PO 11/27/24 21:15 11/30/24 20:47 1 TAB Ondansetron HCl 4 mg Q4HP PRN IV 11/27/24 21:15 Enoxaparin Sodium 40 mg DAILY SC 11/28/24 10:00 12/01/24 09:12 40 MG Albuterol 2.5 mg Q4HR NEB 11/28/24 06:00 12/01/24 10:08 2.5 MG Ipratropium [place] 0.5 mg Q4HR NEB 11/28/24 06:00 12/01/24 10:08 0.5 MG Albuterol 2.5 mg Q2HPRN PRN NEB 11/28/24 12:30 11/28/24 16:10 2.5 MG Ipratropium [place] 0.5 mg Q2HPRN PRN NEB 11/28/24 12:30 11/28/24 16:10 0.5 MG Laboratory Results Laboratory Tests 11/30/24 06:12 Assessment/Plan Assessment/Plan Acute hypoxic respiratory failure Asthma exacerbation Leukocytosis due to steroids Pneumonia due to G- vs G+ bacteria Plan IV antibiotics Rocephin and Zithromax IV steroids Oxygen Med neb treatments as needed Pulmonary consultation Full code Advance directives discussed for 20 minutes Monitor closely Telemetry Give magnesium 2 g IV 11/29/2024: Continue oxygen Med neb treatments IV antibiotics IV steroids Abdominal pain and swelling: Get abdominal ultrasound Monitor the patient closely 11/30/24: US abd: Neg CT Chest: Pneumonia Continue IV antibiotics IV steroids O2, taper down as tolerated Med Nebs prn 12/01/2024: Continue the current management with IV antibiotics and steroids Oxygen as needed Med neb treatments as needed Monitor closely Plan discussed with: Patient Date of Service: December 01, 2024 Billing Provider: JOSIANE TRACY MD Common Visit Codes: [id number] INP/OBS CARE(HIGH) JOSIANE TRACY MD December 01, 2024 12:23
[2024-12-02] VITALS (21 sets, daily range): BP systolic 139–160; BP diastolic 76–92; PULSE 82–103; RESP 16–21; TEMP 97.7–98.7; O2SAT 91–99
--- NOTE | 2024-12-02 11:48 | DVHPN2 ---
Subjective Better Still wheezing although better He is only on 1 L oxygen now Changes from previous H/P or p: Changes Objective Vitals Vital Signs Date Time Temp Pulse Resp B/P (MAP) Pulse Ox O2 Delivery O2 Flow Rate FiO2 12/02/24 09:52 95 16 95 12/02/24 09:46 Nasal Cannula 1.0 12/02/24 09:46 24 12/02/24 09:00 98.7 141/78 (99) 98.7 Intake/Output Intake and Output 12/02/24 07:00 Intake Total 1360 ml Balance 1360 ml Intake Oral 1060 ml IV Total 300 ml # Voids 3 General Appearance: Alert, Oriented X3, moderate distress Lungs: Other (Severe diffuse wheezing) Cardiovascular: Regular rate, Normal S1, Normal S2, No murmurs Abdomen: Normal bowel sounds, Soft, No tenderness Extremities: No edema Medications Current Medications Medications Dose Ordered Sig/Kaia Route Start Time Stop Time Status Last Admin Dose Admin Methylprednisolone Sodium Succinate 62.5 mg Q6H IV 11/27/24 21:15 12/02/24 10:00 62.5 MG Ceftriaxone Sodium 50 ml @ 100 mls/hr DAILY IV 11/27/24 21:15 12/02/24 10:01 100 MLS/HR Azithromycin 250 ml @ 125 mls/hr DAILY IV 11/27/24 22:15 12/02/24 10:01 125 MLS/HR Sodium Chloride 10 ml Q8HR IV 11/27/24 22:00 12/02/24 05:33 10 ML Docusate Sodium 100 mg BIDPRN PRN PO 11/27/24 21:15 Acetaminophen 650 mg Q6HP PRN PO 11/27/24 21:15 Acetaminophen/ Hydrocodone Bitart 1 tab Q4HP PRN PO 11/27/24 21:15 12/01/24 21:29 1 TAB Ondansetron HCl 4 mg Q4HP PRN IV 11/27/24 21:15 Enoxaparin Sodium 40 mg DAILY SC 11/28/24 10:00 12/02/24 10:01 40 MG Albuterol 2.5 mg Q4HR NEB 11/28/24 06:00 12/02/24 09:46 2.5 MG Ipratropium [place] 0.5 mg Q4HR NEB 11/28/24 06:00 5/26/25 09:46 0.5 MG Albuterol 2.5 mg Q2HPRN PRN NEB 11/28/24 12:30 11/28/24 16:10 2.5 MG Ipratropium [place] 0.5 mg Q2HPRN PRN NEB 11/28/24 12:30 11/28/24 16:10 0.5 MG Laboratory Results Laboratory Tests 11/30/24 06:12 Assessment/Plan Assessment/Plan Acute hypoxic respiratory failure Asthma exacerbation Leukocytosis due to steroids Pneumonia due to G- vs G+ bacteria Plan IV antibiotics Rocephin and Zithromax IV steroids Oxygen Med neb treatments as needed Pulmonary consultation Full code Advance directives discussed for 20 minutes Monitor closely Telemetry Give magnesium 2 g IV 11/29/2024: Continue oxygen Med neb treatments IV antibiotics IV steroids Abdominal pain and swelling: Get abdominal ultrasound Monitor the patient closely 11/30/24: US abd: Neg CT Chest: Pneumonia Continue IV antibiotics IV steroids O2, taper down as tolerated Med Nebs prn 12/01/2024: Continue the current management with IV antibiotics and steroids Oxygen as needed Med neb treatments as needed Monitor closely 12/02/2024: Continue the current management with IV antibiotics and steroids and oxygen and med neb treatments Plan discussed with: Patient, Spouse Date of Service: December 02, 2024 Billing Provider: JOSIANE TRACY MD Common Visit Codes: [id number] INP/OBS CARE(HIGH) JOSIANE TRACY MD December 02, 2024 11:48
[2024-12-03] VITALS (13 sets, daily range): BP systolic 134–142; BP diastolic 74–87; PULSE 83–108; RESP 18–21; TEMP 97.7–98.4; O2SAT 90–100
[2024-12-03 07:01] LABS: Hematocrit 42.2 % (36.0-46.0); Hemoglobin 14.1 g/dL (12.2-16.2); Mean Corpuscular Hemoglobin 29.6 pg (28.0-32.0); Mean Corpuscular Hgb Conc. 33.3 g/dL (32.0-36.0); Mean Corpuscular Volume 88.8 fL (80.0-100.0); Platelet Count (auto) 362 10^3/uL (140-450); Red Blood Cells 4.76 10^6/uL (4.0-5.20); Red Cell Distribution Width 13.5 % (11.8-14.3); White Blood Cell 17.8 10^3/uL (4.4-10.8)
[2024-12-03 07:15] LABS: Alanine Aminotransferase 35 U/L (7-40); Alkaline Phosphatase 61 U/L (46-116); Anion Gap 11 (5-15); BUN/Creatinine Ratio 18.9 (10.0-20.0); Bilirubin, Total 0.5 mg/dL (0.2-1.0); Blood Urea Nitrogen 14 mg/dL (9-23); Calcium 9.5 mg/dL (8.7-10.4); Carbon Dioxide 25 mmol/L (20-31); Chloride 100 mmol/L (98-107); Magnesium 2.2 mg/dL (1.6-2.6); Potassium 4.7 mmol/L (3.5-5.1); Total Protein 6.6 g/dL (5.7-8.2)
[2024-12-03 07:16] LABS: Aspartate Aminotransferase < 8 U/L (13-40); Glucose 159 mg/dL (74-106); Sodium 136 mmol/L (136-145)
[2024-12-03 07:53] LABS: Basophils % (manual) 0 (0.0-2.0); Blast Cells 0; Eosinophils % (manual) 0 (0-7); Myelocytes % 0; Promyelocytes % 0; Reactive Lymphocytes 0
[2024-12-03] MEDS ORDERED: ALBU0.084 NEB (09:59)
[2024-12-03] MEDS ORDERED: METH4PAK PO (09:59)
[2024-12-03] MEDS ORDERED: DOXY1CAP57 PO (10:00)
--- NOTE | 2024-12-03 10:04 | DVHDS2 ---
Discharge Summary Date of Admission November 27, 2024 at 21:15 Date of Discharge: December 03, 2024 Labs/Diagnostic Data: Laboratory Results Test 12/03/24 05:37 11/30/24 06:12 11/27/24 21:42 11/27/24 19:42 White Blood Count 17.8 10^3/uL (4.4-10.8) Red Blood Count 4.76 10^6/uL (4.0-5.20) Hemoglobin 14.1 g/dL (12.2-16.2) Hematocrit 42.2 % (36.0-46.0) Mean Corpuscular Volume 88.8 fL (80.0-100.0) Mean Corpuscular Hemoglobin 29.6 pg (28.0-32.0) Mean Corpuscular Hemoglobin Concent 33.3 g/dL (32.0-36.0) Red Cell Distribution Width 13.5 % (11.8-14.3) Platelet Count 362 10^3/uL (140-450) Mean Platelet Volume 8.1 fL (6.9-10.8) Neutrophils (%) (Auto) % (37.0-80.0) Lymphocytes (%) (Auto) % (10.0-50.0) Monocytes (%) (Auto) % (0.0-12.0) Basophils (%) (Auto) % (0.0-2.0) Neutrophils # (Auto) 10 ^3/uL (1.6-8.6) Lymphocytes # (Auto) 10 ^3/uL (0.4-5.4) Monocytes # (Auto) 10 ^3/uL (0-1.3) Sodium Level 136 mmol/L (136-145) Potassium Level 4.7 mmol/L (3.5-5.1) Chloride Level 100 mmol/L (98-107) Carbon Dioxide Level 25 mmol/L (20-31) Anion Gap 11 (5-15) Blood Urea Nitrogen 14 mg/dL (9-23) Creatinine 0.74 mg/dL (0.550-1.02) Glomerular Filtration Rate Calc 100 mL/min (>90) BUN/Creatinine Ratio 18.9 (10.0-20.0) Serum Glucose 159 mg/dL (74-106) Calcium Level 9.5 mg/dL (8.7-10.4) Magnesium Level 2.2 mg/dL (1.6-2.6) Total Bilirubin 0.5 mg/dL (0.2-1.0) Aspartate Amino Transferase (AST) < 8 U/L (13-40) Alanine Aminotransferase (ALT) 35 U/L (7-40) Alkaline Phosphatase 61 U/L (46-116) Total Protein 6.6 g/dL (5.7-8.2) Albumin 4.0 g/dL (3.2-4.8) Eosinophils (%) (Auto) 0.0 % (0.0-7.0) Eosinophils # (Auto) 0 10 ^3/uL (0-0.8) Basophils # (Auto) 0 10 ^3/uL (0-0.2) Nucleated Red Blood Cells 0.1 % Blood Gas Specimen Type Arterial Blood Gas Sample Site Right brachial Blood Gas Patient Temperature 37.0 Arterial Blood Date Drawn [id number] Arterial Blood pH 7.436 (7.350-7.450) Arterial Blood Partial Pressure CO2 35.7 mmHg (32.0-45.0) Arterial Blood Partial Pressure O2 65.7 mmHg (83.0-108.0) Arterial Blood HCO3 23.5 mmol/L (21.0-28.0) Arterial Blood Oxygen Saturation 93.0 % (94.0-98.0) Arterial Blood Base Excess -0.2 mmol/L (-2.0-3.0) Arterial Blood Oxyhemoglobin 91.6 % (94.0-98.0) Arterial Blood Carboxyhemoglobin 1.0 % (0.5-1.5) Arterial Blood Methemoglobin 0.5 % (0.0-1.5) Kye Test N/a Blood Gas Total Hemoglobin 15.50 g/dL (12.0-16.0) Blood Gas Liter Flow 4.00 Blood Gas Modality Nasal cannula FiO2 % 36.0 Troponin I High Sensitivity 3 ng/L (</=34) Test 11/27/24 18:27 C-Reactive Protein High Sensitivity 0.76 mg/dL (<1.0) B-Type Natriuretic Peptide 8.42 pg/mL (0-100) Other Laboratory Tests 12/03/24 05:37 Brief Hx & Hospital Course: Final diagnoses: Acute hypoxic respiratory failure Asthma exacerbation Leukocytosis due to steroids Pneumonia due to G- vs G+ bacteria 48-year-old female with a history of asthma came with shortness of breaths and cough and hypoxia She needed oxygen up to 5 L She had severe wheezing diffusely She was given IV steroids and IV antibiotics and oxygen med neb treatments She improved however it was very slow improvement and therefore we did a CT of the chest which showed pneumonia in the right upper lobe She was to continue the IV antibiotics and IV steroids and med neb treatments and she eventually improved significantly Today she is mostly asymptomatic except for some very mild wheezing and very mild cough The chest is clear with some scattered wheezing She is on room air now Discharged home on Medrol Dosepak and 5 days of doxycycline and albuterol for her nebulizer treatments Follow up with the primary care physician as soon as possible Condition at Discharge: Stable Final Diagnosis/Problems List Acute hypoxic respiratory failure Asthma exacerbation Leukocytosis due to steroids Pneumonia due to G- vs G+ bacteria Discharge Disposition: Home SNF Discharge Will this Physician continue t: No Discharge Instruct/Medications Diet: Regular Activity: No Restrictions, As Tolerated Follow Up/Referral: PCP as soon as possible Medications: Medrol Dosepak Doxycycline for 5 more days Albuterol inhaler as needed Discharge Statement: "Patient was advised to return to the ER or call 911 if any headaches, dizziness, shortness of breath, chest pain, abdominal pain, bleeding, fevers, or worsening of medical condition. Patient was counseled about treatment plan, medications, possible side effects, patientverbalized understanding. All questions were answered to the best of my ability. This discharge took greater then 30 minutes in planning, reviewing documentation, counseling the patient, and discussing with other team members." ASSESSMENT ASSESSMENT Assessment Acute hypoxic respiratory failure Asthma exacerbation Leukocytosis due to steroids Pneumonia due to G- vs G+ bacteria Date of Service: December 03, 2024 Billing Provider: JOSIANE TRACY MD Common Visit Codes: [id number] DISCH DAY >30min JOSIANE TRACY MD December 03, 2024 10:04
[2024-12-03 10:40] LABS: Band Neutrophils % (manual) 3; Lymphocytes % (manual) 10 (10.0-50.0); Metamyelocytes % 2; Monocytes % (manual) 5 (0-12); Platelet Estimate Adequate
== END 2024-12-03 13:50 | disposition home or self-care (01) | DRG 177 ==
LOC: ER 17:31 → OVERFLOW 21:15 → EAST 23:40 → TELE-EAST 11-28 17:40 → TELE-WESTW 12-01 22:35
PROVIDERS: ADMIT Internal Medicine Geriatric Medicine; ATTEND Internal Medicine Geriatric Medicine
DX: J15.69 Pneumonia due to other Gram-negative bacteria (principal); J96.21 Acute and chronic respiratory failure with hypoxia; J45.901 Unspecified asthma with (acute) exacerbation; T38.0X5A Adverse effect of glucocorticoids and synthetic analogues, initial encounter; J15.9 Unspecified bacterial pneumonia; D72.829 Elevated white blood cell count, unspecified; Z83.3 Family history of diabetes mellitus; Z80.0 Family history of malignant neoplasm of digestive organs; Z79.899 Other long term (current) drug therapy; Y92.89 Other specified places as the place of occurrence of the external cause
CPT/HCPCS: 36415; 36600; 71045; 71250; 76700; 80048; 80053; 82805; 83735; 83880; 84484; 85007; 85025; 85027; 86141; 94640; 96374; G0378